=== PATIENT | female | born 2000 | race Caucasian/White ===

== ENCOUNTER 2018-01-28 12:11 | Emergency (ER) | payer OTHER ==
[~2018-01-28] VITALS: Ht 162.5 cm; Wt 113.4 kg
[~2018-01-28 12:11] MED LIST: ALBUTEROL0.09 MG/A2 INH; AMOXIL250 MG/5 M PO; CIPRODEX 0.3%-7.5 ML OT; CLARITIN10 MG PO; FLONASE0.05 MG/AC NS; LORTAB 180 ML180 ML PO; NAPROSYN500 MG PO
[2018-01-28] MEDS ORDERED: CLARITIN10 MG PO (12:15)
[2018-01-28] MEDS ORDERED: FLONASE ALLERG9.9 ML NAS (12:15)
[2018-01-28] MEDS ORDERED: PREDNISONE10 MG PO (12:15)
== END 2018-01-28 13:06 | disposition home or self-care (01) ==
LOC: ED 12:11
DX: J20.9 Acute bronchitis, unspecified (principal); R03.0 Elevated blood-pressure reading, without diagnosis of hypertension; Z88.8 Allergy status to other drugs, medicaments and biological substances; Z79.899 Other long term (current) drug therapy